=== PATIENT | male | born 1970 | race Caucasian/White ===

== ENCOUNTER → 2017-03-16 | Outpatient (CLI) | payer OTHER ==
[2017-03-16 12:40] LABS: BASO % 0.4 %; BASO ABS # 0.02 K/uL (0-0.2); COMPLETE YES; HEMATOCRIT 47.7 % (42-52); IG% 0.2 %; LYMPH % 24.2 %; LYMPH ABS # 1.24 K/uL (1.2-3.4); MEAN CELL VOLUME 92.4 fL (80-100); MEAN CORPUSCULAR HEMOGLOBIN 31.6 pg (25-34); MEAN CORPUSCULAR HGB CONC 34.2 g/dl (32-36); MEAN PLATELET VOLUME 10.8 fL (7.4-10.4); MONO % 10.3 %; NEUT % 63.9 %; PLATELET COUNT 243 K/uL (130-400); RED BLOOD COUNT 5.16 M/uL (4.7-6.1); WHITE BLOOD COUNT 5.13 K/uL (4.8-10.8)
[2017-03-16 12:58] LABS: ALT/SGPT 34 U/L (12-78); AST/SGOT 19 U/L (15-37); BLOOD UREA NITROGEN 16 mg/dl (7-18); BUN/CREATININE RATIO 14.4 (10-20); CALCIUM 9.1 mg/dl (8.5-10.1); CARBON DIOXIDE 29 mmol/L (21-32); CHLORIDE 109 mmol/L (98-107); GLUCOSE 103 mg/dl (70-99); POTASSIUM 4.3 mmol/L (3.5-5.1); SODIUM 142 mmol/L (136-145)
[2017-03-16 13:08] LABS: ALB/GLOB RATIO 1.1 (0.9-2); ALKALINE PHOSPHATASE 79 U/L (45-117); CHOLESTEROL 186 mg/dl (0-200); CHOLESTEROL/HDL RATIO 4.8; HDL CHOLESTEROL 39 mg/dl; LDL CHOLESTEROL CALCULATED 127 mg/dl; TRIGLYCERIDES 98 mg/dl (0-150); VERY LOW DENSITY LIPOPROT CALC 20 mg/dl
== END | disposition home or self-care (01) ==
LOC: C.LABPVFM 07:42
PROVIDERS: ATTEND Neuromusculoskeletal Medicine & OMM
DX: Z00.00 Encounter for general adult medical examination without abnormal findings (principal); R94.6 Abnormal results of thyroid function studies; R22.1 Localized swelling, mass and lump, neck; Z80.42 Family history of malignant neoplasm of prostate; Z12.5 Encounter for screening for malignant neoplasm of prostate

== ENCOUNTER → 2017-03-20 | Outpatient (CLI) | payer OTHER ==
--- NOTE | 2017-03-20 12:26 | DIAGNOSTIC IMAGING REPORT ---
SOFT TISS HEAD/NECK-THYROID CLINICAL HISTORY: 46 years-old Male presenting with abnormal thyroid blood tests, nodule of the neck. TECHNIQUE: Real-time grayscale and color and spectral Doppler ultrasound imaging of the thyroid and base of the neck was performed. COMPARISON: None. FINDINGS: Right lobe: Normal echogenicity and echotexture. The right lobe of the thyroid measures 5.0 x 1.3 x 1.7 cm. Diminutive 2 mm anechoic cyst noted in the right lobe. Normal color Doppler flow within the parenchyma without evidence of hyperemia. Left lobe: Normal echogenicity and echotexture. The left lobe of the thyroid measures 4.2 x 1.1 x 1.4 cm. No nodules. Normal color Doppler flow within the parenchyma without evidence of hyperemia. Isthmus: The isthmus measures 3 mm in thickness. No nodules. IMPRESSION: Essentially normal thyroid ultrasound with a benign diminutive cyst in the right lobe. Electronically signed by: Quang Leong M.D. 03/20/2017 12:25 PM Dictated Date/Time: 03/20/2017 12:23 PM
== END | disposition home or self-care (01) ==
LOC: C.ULTR 11:58
PROVIDERS: ATTEND Neuromusculoskeletal Medicine & OMM
DX: R22.1 Localized swelling, mass and lump, neck (principal); R94.6 Abnormal results of thyroid function studies